=== PATIENT | male | born 1990 | race Caucasian/White ===

== ENCOUNTER 2018-07-28 23:13 | Emergency (ER) | payer MEDICAID ==
[2018-07-28 23:19] VITALS: BP 140/96
[2018-07-28] MEDS ORDERED: IBUPROFEN 800 MG TAB PO ONE (23:30)
--- NOTE | 2018-07-28 23:33 | EDPHY ---
H & P Stated Complaint: R foot pain, "dx with drop foot" since Oct Time Seen by Provider: 07/28/18 23:31 HPI/ROS: HPI CHIEF COMPLAINT: Right foot pain x2 months. HISTORY OF PRESENT ILLNESS: 27-year-old male, homeless, presents emergency room with right foot pain x2 months. Patient reports that he has foot pain on the bottom of his right foot. Appears to be at the insertion point of his plantar fascia. He states been constant for 2 months and getting worse. He has a very high arch on his foot. And wears very flat shoes. He states worse when he walks and worse at the end of the day.No direct foot trauma. Past Medical History: Denies Past Surgical History: Denies Social History: Denies drugs alcohol tobacco. Family History: Noncontributory ROS REVIEW OF SYSTEMS: 10 Systems were reviewed and negative with the exception of the elements mentioned in the history of present illness. Exam Constitutional triage nursing summary reviewed, vital signs reviewed, awake/ alert. Eyes normal conjunctivae and sclera, EOMI, PERRLA. HENT normal inspection, atraumatic, moist mucus membranes, no epistaxis, neck supple/ no meningismus, no raccoon eyes. Respiratory clear to auscultation bilaterally, normal breath sounds, no respiratory distress, no wheezing. Cardiovascular rate normal, regular rhythm, no murmur, no edema, distal pulses normal. Gastrointestinal soft, non-tender, no rebound, no guarding, normal bowel sounds, no distension, no pulsatile mass. Genitourinary no CVA tenderness. Musculoskeletal right foot: Neurovascular intact with good distal pulse, high arch, mild tender palpation at the plantar insertion site of the base of the arch at the heel site. No significant swelling, good cap refill, warm extremity. No obvious signs of trauma. no midline vertebral tenderness, full range of motion, no calf swelling, no tenderness of extremities, no meningismus, good pulses, neurovascularly intact. Skin pink, warm, & dry, no rash, skin atraumatic. Neurologic awake, alert and oriented x 3, AAOx3, moves all 4 extremities equally, motor intact, sensory intact, CN II-XII intact, normal cerebellar, normal vision, normal speech. Psychiatric normal mood/affect. Heme/Lymph/Immune no lymphadenopathy. Differential Diagnosis: Includes but is not limited to in a particular order right foot contusion, right foot sprain, plantar fasciitis, fracture Medical Decision Making: Plan for the patient x-ray right foot, ibuprofen 800 mg, re-evaluate. Re-evaluation: X-ray the right foot reviewed negative for acute fracture. Recommend ice, elevation, NSAIDs. Recommend treatment for plantar fasciitis. Source: Patient - Personal History Current Tetanus/Diphtheria Vaccine: Yes - Medical/Surgical History Hx Asthma: No Hx Chronic Respiratory Disease: No Hx Diabetes: No Hx Cardiac Disease: No Hx Renal Disease: No Hx Cirrhosis: No Hx Alcoholism: No Hx HIV/AIDS: No Hx Splenectomy or Spleen Trauma: No Other PMH: "drop foot" - Social History Smoking Status: Heavy smoker Constitutional: Initial Vital Signs Temperature (C) 36.7 C 07/28/18 23:15 Heart Rate 96 07/28/18 23:15 Respiratory Rate 18 07/28/18 23:15 Blood Pressure 140/96 H 07/28/18 23:15 O2 Sat (%) 94 07/28/18 23:15 O2 Delivery Mode Room Air Allergies/Adverse Reactions: No Known Allergies Allergy (Unverified 07/28/18 23:18) Home Medications: Medication Instructions Recorded NK [No Known Home Meds] 07/28/18 Medical Decision Making - Diagnostics Imaging Results: Imaging Impressions Foot X-Ray 07/28/18 23:30 Impression: No acute osseous abnormality. - Data Points Medications Given: Discontinued Medications Ibuprofen (Motrin) 800 mg PO EDNOW ONE Stop: 07/28/18 23:31 Last Admin: 07/28/18 23:34 Dose: 800 mg Departure - Departure Disposition: Home, Routine, Self-Care Clinical Impression: Plantar fascia syndrome Condition: Good Instructions: Plantar Fasciitis (ED) Additional Instructions: 1. Recommend better foot support 2. Follow up with the foot doctor 3. Anti-inflammatory pain medicine 4. Ice your foot. Referrals: NONE *PRIMARY CARE P,. [Primary Care Provider] - As per Instructions Krystina Lambert DPM [Doctor of Podiatric Medicine] - As per Instructions
== END 2018-07-29 00:10 | disposition home or self-care (01) ==
DX: M72.2 Plantar fascial fibromatosis (principal); Z59.0 Homelessness